=== PATIENT | male | born 1935 | race Caucasian/White ===

== ENCOUNTER 2024-01-30 13:04 | Inpatient (IN) | payer MEDICARE, OTHER ==
[~2024-01-30] VITALS: Ht 170.2 cm; Wt 90.7 kg
[2024-01-30 17:48] VITALS: BP 129/62; TEMP 98.5; O2SAT 91
[2024-01-30] MEDS ORDERED: REMEDY ESSENTIAL ZINC PASTE 113 GM TOP PRN (18:00)
[2024-01-30] MEDS ORDERED: APIX5TAB4 PO (18:40)
[2024-01-30] MEDS ORDERED: ASCO100031 PO (18:40)
[2024-01-30] MEDS ORDERED: HYDR-3972 PO (18:40)
[2024-01-30] MEDS ORDERED: TIOT18CA3 INH (18:40)
[2024-01-30] MEDS ORDERED: FLUT16SP16 BNOSTRILS (18:40)
[2024-01-30] MEDS ORDERED: DIPH25CA83 PO (18:40)
[2024-01-30] MEDS ORDERED: DULA0.75 SQ (18:40)
[2024-01-30] MEDS ORDERED: ESOM20CA PO (18:40)
[2024-01-30] MEDS ORDERED: BRIM5DRO11 EACHEYE (18:40)
[2024-01-30] MEDS ORDERED: GABA100C PO (18:40)
[2024-01-30] MEDS ORDERED: CHOL200010 PO (18:40)
[2024-01-30] MEDS ORDERED: DOCU-141 PO (18:40)
[2024-01-30] MEDS ORDERED: INSU100V7 SQ (18:40)
[2024-01-30] MEDS ORDERED: LOSA25TA3 PO (18:40)
[2024-01-30] MEDS ORDERED: MAGN400O6 PO (18:40)
[2024-01-30] MEDS ORDERED: HYDROCODONE/APAP 5-325MG TABLET PO PRN (20:15)
[2024-01-30] MEDS ORDERED: DEXTROSE 50% 50 ML DISP.SYRIN IV PRN (20:15)
[2024-01-30] MEDS ORDERED: GABAPENTIN 100 MG CAPSULE PO SCH (20:15)
[2024-01-30 20:31] VITALS: BP 113/54; TEMP 98; O2SAT 94
[2024-01-30] MEDS: DOCUSATE SODIUM 100 MG CAPSULE PO SCH (21:09)
[2024-01-30] MEDS: BLOOD SUGAR DIAGNOSTIC 1 EACH STRIP VI SCH (21:18)
[2024-01-30] MEDS: INSULIN REGULAR, HUMAN 300 UNIT/3 ML VIAL SQ PRN (21:22)
[2024-01-31 05:20] VITALS: BP 131/68; TEMP 98.1; O2SAT 97
[2024-01-31] MEDS: PANTOPRAZOLE SODIUM 40 MG TABLET.DR PO SCH (06:27)
[2024-01-31 07:02] LABS: BASOPHILS % (AUTO) 0.5 % (0.0-2.0); EOSINOPHILS # (AUTO) 0.3 K/uL (0.0-0.7); HEMATOCRIT 25.3 % (36.7-47.1); HEMOGLOBIN 8.6 g/dL (12.5-16.3); LYMPHOCYTES # (AUTO) 1.3 K/uL (0.8-4.8); LYMPHOCYTES % (AUTO) 15.6 % (20.5-51.5); MEAN CORPUSCULAR HGB CONC 34 g/dL (32.5-36.3); MEAN CORPUSCULAR VOLUME 87.8 fL (73.0-96.2); MONOCYTES # (AUTO) 0.7 K/uL (0.1-1.30); MONOCYTES % (AUTO) 8.1 % (0.0-11.0); NEUTROPHILS # (AUTO) 6.1 K/uL (1.8-8.9); NEUTROPHILS % (AUTO) 71.8 % (38.5-71.5); PLATELET COUNT (AUTO) 425 K/uL (152-348); RED BLOOD CELL COUNT(AUTO) 2.88 MIL/uL (4.06-5.63); RED CELL DISTRIBUTION WIDTH 15.4 % (12.1-16.2); WHITE BLOOD COUNT (AUTO) 8.5 K/uL (3.6-10.2)
[2024-01-31 07:18] LABS: DIFFERENTIAL COMMENT 1
[2024-01-31 07:28] LABS: THYROID STIMULATING HORMONE 1.293 mIU/mL (0.358-3.740)
[2024-01-31 07:30] LABS: IRON, SERUM 31 ug/dL (50-175)
[2024-01-31 07:47] LABS: ALANINE AMINOTRANSFERASE 32 U/L (16-63); ALBUMIN 2.3 g/dL (3.4-5.0); ALKALINE PHOSPHATASE 107 U/L (50-136); ASPARTATE AMINOTRANSFERASE 21 U/L (15-37); BILIRUBIN,TOTAL 0.8 mg/dL (0.2-1.0); CALCIUM 8.3 mg/dL (8.5-10.1); CARBON DIOXIDE 30 mmol/L (21-32); CHLORIDE 100 mmol/L (98-107); CHOLESTEROL 114 mg/dL (<200); CREATININE 1.2 mg/dL (0.6-1.3); GLUCOSE 144 mg/dL (74-106); HDL CHOLESTEROL 36 mg/dL (40-60); MAGNESIUM 2.3 mg/dL (1.8-2.4); PHOSPHOROUS 3.4 mg/dL (2.5-4.9); POTASSIUM 4.2 mmol/L (3.5-5.1); SODIUM SERUM 136 mmol/L (136-145); TOTAL PROTEIN, SERUM 7.1 g/dL (6.4-8.2); TRIGLYCERIDES 119 MG/DL (30-150); UREA NITROGEN, BLOOD 42 mg/dL (7-18)
[2024-01-31 08:00] VITALS: BP 133/60; TEMP 97.6; O2SAT 99
[2024-01-31] MEDS: diphenhydrAMINE 25 MG CAP PO SCH (08:24)
[2024-01-31] MEDS: CHOLECALCIFEROL 1,000 UNIT TABLET PO SCH (08:24)
[2024-01-31] MEDS: LOSARTAN POTASSIUM 25 MG TABLET PO SCH (08:25)
[2024-01-31] MEDS: APIXABAN 5 MG TABLET PO SCH (08:25)
[2024-01-31] MEDS: ASCORBIC ACID 500 MG TABLET PO SCH (08:25)
[2024-01-31] MEDS: INSULIN GLARGINE,HUM 300 UNITS/3 ML CARTRIDGE SQ SCH (08:59)
[2024-01-31] MEDS: FLUTICASONE PROP NASAL SPRAY 16 GM BOTTLE NS SCH (08:59)
[2024-01-31] MEDS ORDERED: Medication Not On Formulary EA (Apixaban (Eliquis) 5 MG) PO SCH (09:00)
[2024-01-31] MEDS: ACETAMINOPHEN 325 MG TABLET PO PRN (14:59)
[2024-01-31 15:28] VITALS: BP 139/57; TEMP 98.7; O2SAT 99
[2024-01-31 16:05] VITALS: O2SAT 97
[2024-01-31 20:25] VITALS: BP 101/47; TEMP 97.7; O2SAT 95
[2024-02-01 06:15] VITALS: BP 129/57; TEMP 97.5; O2SAT 95
[2024-02-01] MEDS: OXYCODONE HCL 5 MG TABLET PO SCH ×2 (13:42→17:34)
[2024-02-01 16:36] VITALS: BP 121/50; TEMP 97.9; O2SAT 95
[2024-02-01] MEDS: GLUCERNA SHAKE 237 ML CAN PO SCH (17:34)
[2024-02-01 20:00] VITALS: BP 109/44; TEMP 98.3; O2SAT 95
[2024-02-01] MEDS ORDERED: DOCUSATE SODIUM 100 MG CAPSULE PO SCH (21:00)
[2024-02-01] MEDS: SENNOSIDES 1 TABLET PO SCH (21:51)
[2024-02-02 05:25] VITALS: BP 130/54; TEMP 97.8; O2SAT 97
[2024-02-02 06:05] VITALS: O2SAT 95
[2024-02-02 16:00] VITALS: BP 108/58; TEMP 98; O2SAT 100
[2024-02-02 16:18] VITALS: O2SAT 96
[2024-02-02 20:00] VITALS: BP 132/75; TEMP 97.5; O2SAT 96
[2024-02-03 06:00] VITALS: BP 135/53; TEMP 97.9; O2SAT 100
[2024-02-03 06:11] VITALS: O2SAT 97
[2024-02-03] MEDS: OXYCODONE HCL 5 MG TABLET PO SCH (06:16)
[2024-02-03 08:37] LABS: BASOPHILS # (AUTO) 0.1 K/UL (0.0-0.2); BASOPHILS % (AUTO) 0.5 % (0.0-2.0); EOSINOPHILS # (AUTO) 0.3 K/uL (0.0-0.7); EOSINOPHILS % (AUTO) 2.9 % (0.0-7.0); HEMATOCRIT 28.6 % (36.7-47.1); HEMOGLOBIN 9.5 g/dL (12.5-16.3); LYMPHOCYTES # (AUTO) 1.5 K/uL (0.8-4.8); LYMPHOCYTES % (AUTO) 13.7 % (20.5-51.5); MEAN CORPUSCULAR HEMOGLOBIN 29.7 uug (23.8-33.4); MEAN CORPUSCULAR HGB CONC 33 g/dL (32.5-36.3); MEAN CORPUSCULAR VOLUME 89.2 fL (73.0-96.2); MONOCYTES # (AUTO) 0.7 K/uL (0.1-1.30); MONOCYTES % (AUTO) 7.1 % (0.0-11.0); NEUTROPHILS % (AUTO) 75.8 % (38.5-71.5); PLATELET COUNT (AUTO) 521 K/uL (152-348); RED BLOOD CELL COUNT(AUTO) 3.21 MIL/uL (4.06-5.63); RED CELL DISTRIBUTION WIDTH 16.3 % (12.1-16.2); WHITE BLOOD COUNT (AUTO) 10.6 K/uL (3.6-10.2)
[2024-02-03 08:43] LABS: DIFFERENTIAL COMMENT 1
[2024-02-03 08:47] LABS: CARBON DIOXIDE 29 mmol/L (21-32); CHLORIDE 100 mmol/L (98-107); CREATININE 1.4 mg/dL (0.6-1.3); GLUCOSE 166 mg/dL (74-106); POTASSIUM 4.2 mmol/L (3.5-5.1); SODIUM SERUM 134 mmol/L (136-145); UREA NITROGEN, BLOOD 37 mg/dL (7-18)
[2024-02-03 10:50] LABS: *BILIRUBIN,URIN NEGATIVE (NEGATIVE); *BLOOD, URINE 2+ (NEGATIVE); *CLARITY,URINE CLOUDY (CLEAR); *COLOR,URINE YELLOW (YELLOW); *KETONES,URINE NEGATIVE (NEGATIVE); *PROTEIN,URINE 1+ (NEGATIVE); *UROBILINOGEN,URINE 0.2 E.U./dl (NORMAL); LEUKOCYTE ESTERASE ,URINE 3+ (NEGATIVE); NITRITE, URINE POSITIVE (NEGATIVE); UGLUCOSE NEGATIVE (NEGATIVE)
[2024-02-03 12:03] LABS: BACTERIA,URINE MANY /HPF (NONE SEEN); SQUAMOUS EPITHELIAL CELL,UR FEW /HPF (NONE SEEN); WBC,URINE 80-100 /HPF (0-3)
[2024-02-03 15:52] VITALS: BP 111/54; TEMP 97.9; O2SAT 94
[2024-02-03 17:39] VITALS: O2SAT 96
[2024-02-03 20:08] VITALS: BP 100/48; TEMP 98; O2SAT 94
[2024-02-03 21:51] VITALS: O2SAT 96
[2024-02-03] MEDS ORDERED: CEFTRIAXONE /D5W 50ML IVPB **ER PYXIS IV ONE (23:33)
[2024-02-03] MEDS: CEFTRIAXONE 1 G in IV DEXTROSE 5% 50 ML IV SCH (23:36)
[2024-02-04 00:11] VITALS: O2SAT 96
[2024-02-04 09:16] VITALS: O2SAT 98
[2024-02-04] MEDS: IPRATROPIUM BROMIDE 0.5 MG/2.5 ML NEBU NEB PRN (09:16)
[2024-02-04 09:26] VITALS: O2SAT 96
[2024-02-04 16:00] VITALS: BP 112/46; TEMP 98.6; O2SAT 97
[2024-02-04 20:17] VITALS: BP 108/53; TEMP 97.9; O2SAT 95
[2024-02-04 20:51] VITALS: O2SAT 96
[2024-02-04] MEDS ORDERED: DOCUSATE SODIUM 100 MG CAPSULE PO SCH (21:00)
[2024-02-04] MEDS: SENNOSIDES 1 TABLET PO SCH (21:00)
[2024-02-05 04:26] VITALS: O2SAT 96
[2024-02-05 06:00] VITALS: BP 134/62; TEMP 97.9; O2SAT 98
[2024-02-05 07:18] VITALS: BP 126/74; TEMP 97; O2SAT 96
[2024-02-05 15:08] VITALS: BP 110/47; TEMP 97.4; O2SAT 94
[2024-02-05 20:26] VITALS: TEMP 97.7
[2024-02-05 20:47] VITALS: O2SAT 96
[2024-02-06] VITALS: TEMP 98
[2024-02-06 06:00] VITALS: TEMP 97.8
[2024-02-06 13:22] VITALS: O2SAT 94; O2SAT 98
[2024-02-06 16:00] VITALS: BP 137/52; TEMP 97.8; O2SAT 96
[2024-02-06 20:18] VITALS: BP 108/60; TEMP 98.3; O2SAT 96
[2024-02-07 06:10] VITALS: BP 125/54; TEMP 97.7; O2SAT 95
[2024-02-07] MEDS: GABAPENTIN 100 MG CAPSULE PO PRN (10:28)
[2024-02-07 16:00] VITALS: BP 99/59; TEMP 97.2; O2SAT 96
[2024-02-07 20:15] VITALS: BP 109/45; TEMP 98; O2SAT 98
[2024-02-08 06:30] VITALS: BP 120/51; TEMP 97.7; O2SAT 98
[2024-02-08] MEDS: AMOXICILLIN-CLAVUL 500-125MG TABLET PO SCH (14:22)
[2024-02-08 16:00] VITALS: BP 108/46; TEMP 97.6; O2SAT 93
[2024-02-08 20:00] VITALS: BP 112/50; TEMP 97.9; O2SAT 96
[2024-02-08 22:10] LABS: *BILIRUBIN,URIN NEGATIVE (NEGATIVE); *BLOOD, URINE 3+ (NEGATIVE); *CLARITY,URINE SLIGHTLY CLOUDY (CLEAR); *COLOR,URINE YELLOW (YELLOW); *KETONES,URINE NEGATIVE (NEGATIVE); *PROTEIN,URINE NEGATIVE (NEGATIVE); LEUKOCYTE ESTERASE ,URINE 3+ (NEGATIVE); NITRITE, URINE NEGATIVE (NEGATIVE); PH,URINE 6.5 (5.0-8.0); UGLUCOSE NEGATIVE (NEGATIVE)
[2024-02-08 22:37] LABS: BACTERIA,URINE MANY /HPF (NONE SEEN); SQUAMOUS EPITHELIAL CELL,UR NONE SEEN /HPF (NONE SEEN)
[2024-02-09 06:00] VITALS: BP 101/51; TEMP 97.7; O2SAT 94
[2024-02-09 13:52] VITALS: O2SAT 99
[2024-02-09 16:33] VITALS: BP 104/47; TEMP 97.7; O2SAT 96
[2024-02-09 20:11] VITALS: O2SAT 96
[2024-02-09 22:05] VITALS: BP 94/51; TEMP 98.2; O2SAT 100
[2024-02-10 07:30] VITALS: BP 122/55; TEMP 97.6; O2SAT 99
[2024-02-10 11:47] VITALS: O2SAT 97
[2024-02-10 15:22] VITALS: BP 121/60; TEMP 97.8; O2SAT 96
[2024-02-10 19:48] VITALS: BP 135/51; TEMP 98.2; O2SAT 97
[2024-02-11 06:18] LABS: BASOPHILS % (AUTO) 0.1 % (0.0-2.0); EOSINOPHILS # (AUTO) 0.2 K/uL (0.0-0.7); HEMOGLOBIN 8.7 g/dL (12.5-16.3); LYMPHOCYTES # (AUTO) 0.9 K/uL (0.8-4.8); LYMPHOCYTES % (AUTO) 14.2 % (20.5-51.5); MEAN CORPUSCULAR HEMOGLOBIN 29.5 uug (23.8-33.4); MEAN CORPUSCULAR HGB CONC 34 g/dL (32.5-36.3); MONOCYTES # (AUTO) 0.7 K/uL (0.1-1.30); MONOCYTES % (AUTO) 10.7 % (0.0-11.0); NEUTROPHILS # (AUTO) 4.8 K/uL (1.8-8.9); PLATELET COUNT (AUTO) 439 K/uL (152-348); RED BLOOD CELL COUNT(AUTO) 2.95 MIL/uL (4.06-5.63); RED CELL DISTRIBUTION WIDTH 17.3 % (12.1-16.2); WHITE BLOOD COUNT (AUTO) 6.6 K/uL (3.6-10.2)
[2024-02-11 06:40] LABS: CALCIUM 8.5 mg/dL (8.5-10.1); CARBON DIOXIDE 27 mmol/L (21-32); CHLORIDE 98 mmol/L (98-107); CREATININE 1.5 mg/dL (0.6-1.3); GLUCOSE 98 mg/dL (74-106); MAGNESIUM 2.3 mg/dL (1.8-2.4); PHOSPHOROUS 4.2 mg/dL (2.5-4.9); POTASSIUM 4.9 mmol/L (3.5-5.1); SODIUM SERUM 133 mmol/L (136-145); UREA NITROGEN, BLOOD 33 mg/dL (7-18)
[2024-02-11 06:42] LABS: DIFFERENTIAL COMMENT 1
[2024-02-11 06:45] VITALS: BP 108/48; O2SAT 94
[2024-02-11 16:03] VITALS: BP 111/45; TEMP 98.4; O2SAT 96
== END 2024-02-11 16:40 | disposition home health service (06) | DRG 559 ==
PROVIDERS: ADMIT Physical Medicine & Rehabilitation Pain Medicine; ATTEND Physical Medicine & Rehabilitation Pain Medicine
DX: S72.142D Displaced intertrochanteric fracture of left femur, subsequent encounter for closed fracture with routine healing (principal); J18.9 Pneumonia, unspecified organism; D62 Acute posthemorrhagic anemia; I50.32 Chronic diastolic (congestive) heart failure; N17.9 Acute kidney failure, unspecified; I13.0 Hypertensive heart and chronic kidney disease with heart failure and stage 1 through stage 4 chronic kidney disease, or unspecified chronic kidney disease; J44.0 Chronic obstructive pulmonary disease with (acute) lower respiratory infection; E87.1 Hypo-osmolality and hyponatremia; K56.7 Ileus, unspecified; N39.0 Urinary tract infection, site not specified; N32.1 Vesicointestinal fistula; S72.122D Displaced fracture of lesser trochanter of left femur, subsequent encounter for closed fracture with routine healing; E78.5 Hyperlipidemia, unspecified; N40.0 Benign prostatic hyperplasia without lower urinary tract symptoms; W18.30XD Fall on same level, unspecified, subsequent encounter; N18.9 Chronic kidney disease, unspecified; E11.22 Type 2 diabetes mellitus with diabetic chronic kidney disease; Z88.5 Allergy status to narcotic agent; D63.8 Anemia in other chronic diseases classified elsewhere
CPT/HCPCS: 36415; 73501; 73502; 83550; 83735; 84100; 84443; 85025; 94640; 94760; 97535-GO-CO; A4663; A6209; J0696; J1815; J3535; J3590; Q0163